=== PATIENT | female | born 1980 | race Caucasian/White ===

== ENCOUNTER 2016-07-23 11:42 | Emergency (ER) | payer OTHER ==
[~2016-07-23] VITALS: Ht 154.9 cm; Wt 75.2 kg
[~2016-07-23 11:42] MED LIST: CITRATE OF MAG296 ML PO; MIRALAX17 GM PO; TERCONAZOLE45 GM VG; VIGAMOX 0.60 DROP/3 BOTH EYES; ZOFRAN ODT4 MG PO
[2016-07-23 13:58] LABS: HEMATOCRIT 42.5 % (36.0-46.0); MCH 31.9 PG (29.0-34.0); MCHC 33.9 G/DL (30.0-36.0); MEAN PLAT.VOLUME 9.3 uM^3 (9.5-12.4); PLATELET COUNT 321 K/uL (156-360); RBC DIS.WIDTH-CV 11.9 % (11.8-14.6); RBC DIS.WIDTH-SD 41.4 % (39-53); RED BLOOD COUNT 4.52 M/uL (3.80-5.20); WHITE BLOOD COUNT 7.6 K/uL (4.1-10.2)
[2016-07-23 14:10] LABS: CHLORIDE 103 mEq/L (99-109); SODIUM 140 mEq/L (136-147)
[2016-07-23 14:12] LABS: GLUCOSE 78 mg/dL (70-99)
[2016-07-23 14:13] LABS: ANION GAP 13 MEQ/L (2-14)
[2016-07-23 14:14] LABS: TOTAL BILIRUBIN 1.3 mg/dL (0.0-1.0)
[2016-07-23 14:16] LABS: ALKALINE PHOSPHATASE 74 IU/L (3-129); GFR ESTIMATE (CALCULATED) > 59 mL/min/
[2016-07-23 14:17] LABS: UREA NITROGEN (BUN) 13 mg/dL (9-23)
[2016-07-23 14:19] LABS: LIPASE 20 U/L (1.0-51.0)
[2016-07-23 14:25] LABS: QUANTITATIVE HCG < 4.0 MIU/ML
[2016-07-23 14:28] LABS: ADD MIUA? YES; BILIRUBIN NEGATIVE; BLOOD NEGATIVE; COLOR YELLOW ((YELLOW)); GLUCOSE (STRIP) NEGATIVE; KETONES 5; LEUKOCYTES SMALL; NITRITE NEGATIVE; PROTEIN (STRIP) NEGATIVE; UROBILINOGEN 0.2 MG/DL (0.2-1.0)
[2016-07-23 14:52] LABS: BACTERIA NONE SEEN /HPF; EPITHELIAL CELLS 1+ /HPF; MUCUS 2+ /LPF; RED BLOOD CELLS 0-5 /HPF (0-5); URIC ACID CRYSTALS 1+ /HPF; WHITE BLOOD CELLS 0-5 /HPF (0-5)
[2016-07-23] MEDS ORDERED: CITROMA296 ML PO (15:01)
[2016-07-23] MEDS ORDERED: BENTYL20 MG PO (15:01)
[2016-07-23 16:12] VITALS: BP 130/81
== END 2016-07-23 16:13 | disposition home or self-care (01) ==
LOC: EME 11:42 → EXP 13:48
PROVIDERS: Nurse Practitioner Family
DX: K59.00 Constipation, unspecified (principal); R11.0 Nausea
CPT/HCPCS: 74000; 80053; 81003; 83690; 84702; 85027; 99281; 99284